=== PATIENT | male | born 1975 | race African-American/Black ===

== ENCOUNTER 2016-11-16 15:56 | Emergency (ER) | payer OTHER ==
[2016-11-16 16:02] VITALS: BMI 26.7
[2016-11-16 16:52] LABS: URINE APPEARANCE CLEAR; URINE BILIRUBIN NEGATIVE (NEGATIVE); URINE BLOOD NEGATIVE (NEGATIVE); URINE COLOR STRAW; URINE GLUCOSE (UA) NEGATIVE (NEGATIVE); URINE KETONE NEGATIVE (NEGATIVE); URINE NITRITE NEGATIVE (NEGATIVE); URINE PROTEIN NEGATIVE (NEGATIVE); URINE UROBILINOGEN NEGATIVE E.U./dl (0.2-1.0)
[2016-11-16] MEDS ORDERED: ACETAMINOPHEN 325 MG TABLET (FP) PO ONE (16:52)
[2016-11-16 16:53] LABS: URINE LEUK ESTERASE TRACE (NEGATIVE)
[2016-11-16] MEDS ORDERED: ACETAMINOPHEN 325 MG TABLET (FP) ONE (16:54)
[2016-11-16 16:56] LABS: BASOPHIL 0.4 % (0-2.0); EOSINOPHIL 0.3 % (0-4.5); MCH 28.3 pg (25.7-33.7); MCHC 32.8 g/dl (32.0-35.9); MEAN CELL VOLUME 86.4 fl (80-96); NEUTROPHILS 89.1 % (42.8-82.8); PLATELET COUNT 244 K/MM3 (134-434); RDW 13.6 % (11.9-15.9); WHITE BLOOD COUNT 11.3 K/mm3 (4.0-10.0)
[2016-11-16 17:20] LABS: URINE RBC 0-2 /hpf (0-3)
[2016-11-16] MEDS ORDERED: LEVOFLOXACIN 500 MG TABLET (FP) PO ONE (17:57)
--- NOTE | 2016-11-16 18:10 | PDOC ---
History of Present Illness <Na Fritz - Last Filed: 11/16/16 18:11> - History of Present Illness Initial Comments: 11/16/16 18:35 Patient is a 41 year old male with no significant medical hx who is presenting to the ED with fever, chills and body aches since today. He also complains of headache and some burning with urination. Denies nausea, vomiting, diarrhea, chest pain, cough, abdominal pain, and shortness of breath. Denies past medical hx, chronic medications, and any known allergies. Patient is a [employer] employee who works in the [employer]. <Jennifer Lal - Last Filed: 11/16/16 18:43> - General Chief Complaint: Headache Stated Complaint: FEVER, CHILLS, COLD Time Seen by Provider: 11/16/16 17:29 Past History - Past Medical History Other medical history: PT DENIES MEDICAL HX - Psycho/Social/Smoking Cessation Hx Anxiety: No Suicidal Ideation: No Smoking History: Never smoked Hx Alcohol Use: No Drug/Substance Use Hx: No <Na Fritz - Last Filed: 11/16/16 18:11> <Jennifer Lal - Last Filed: 11/16/16 18:43> - Past Medical History Allergies/Adverse Reactions: Allergies Allergy/AdvReac Type Severity Reaction Status Date / Time No Known Allergies Allergy Verified 11/16/16 16:03 Home Medications: Ambulatory Orders Sulfamethoxazole/Trimethoprim [Bactrim Ds -] 1 tab PO BID #14 tablet 11/16/16 Review of Systems - Review of Systems Comments:: 11/16/16 18:39 CONSTITUTIONAL: Present: fever, chills Absent: diaphoresis, generalized weakness, malaise, loss of appetite HEENT: Absent: rhinorrhea, nasal congestion, throat pain, throat swelling, difficulty swallowing, mouth swelling, ear pain, eye pain, visual changes CARDIOVASCULAR: Absent: chest pain, syncope, palpitations, irregular heart rate, lightheadedness , peripheral edema RESPIRATORY: Absent: cough, shortness of breath, dyspnea with exertion, orthopnea, wheezing, stridor, hemoptysis GASTROINTESTINAL: Absent: abdominal pain, abdominal distension, nausea, vomiting, diarrhea, constipation, melena, hematochezia GENITOURINARY: Present: dysuria Absent: frequency, urgency, hesitancy, hematuria, flank pain, genital pain MUSCULOSKELETAL: Present: myalgia Absent: arthralgia, joint swelling SKIN: Absent: rash, itching, pallor HEMATOLOGIC/IMMUNOLOGIC: Absent: easy bleeding, easy bruising, lymphadenopathy, frequent infections ENDOCRINE: Absent: unexplained weight gain, unexplained weight loss, heat intolerance, cold intolerance NEUROLOGIC: Present: headache Absent: focal weakness or paresthesia, dizziness, unsteady gait, seizure, mental status changes, bladder or bowel incontinence. PSYCHIATRIC: Absent: anxiety, depression, suicidal or homicidal ideation, hallucinations <HaliJennifer chan - Last Filed: 11/16/16 18:43> *Physical Exam - Vital Signs Last Vital Signs Temp Pulse Resp BP Pulse Ox 103 F H 94 H 20 146/91 100 11/16/16 16:56 11/16/16 16:00 11/16/16 16:00 11/16/16 16:00 11/16/16 16:00 <Na Fritz - Last Filed: 11/16/16 18:11> - Vital Signs Last Vital Signs Temp Pulse Resp BP Pulse Ox 99.2 F 81 18 130/75 99 11/16/16 18:29 11/16/16 18:29 11/16/16 18:29 11/16/16 18:29 11/16/16 18:29 - Physical Exam Comments: 11/16/16 18:41 GENERAL: Well developed, well nourished. Awake and alert. No acute distress. HEENT: Normocephalic, atraumatic. PERRLA, EOMI. No conjunctival pallor. Sclera are non- icteric. Moist mucous membranes. Oropharynx is clear. NECK: Supple. Full ROM. No JVD. Carotid pulses 2+ and symmetric, without bruits. No thyromegaly. No lymphadenopathy. CARDIOVASCULAR: Tachycardic. No murmurs, rubs, or gallops. Distal pulses are 2+ and symmetric. PULMONARY: No evidence of respiratory distress. Lungs clear to auscultation bilaterally. No wheezing, rales or rhonchi. ABDOMINAL: Soft. Non-tender. Non-distended. No rebound or guarding. No organomegaly. Normoactive bowel sounds. MUSCULOSKELETAL: Normal range of motion at all joints. No bony deformities or tenderness. No CVA tenderness. EXTREMITIES: No cyanosis. No clubbing. No edema. No calf tenderness. SKIN: Warm and dry. Normal capillary refill. No rashes. No jaundice. NEUROLOGICAL: Alert, awake, appropriate. Cranial nerves 2-12 intact. Normal speech. PSYCHIATRIC: Cooperative. Good eye contact. Appropriate mood and affect. <HaliJennifer - Last Filed: 11/16/16 18:43> ED Treatment Course - LABORATORY CBC & Chemistry Diagram: 11/16/16 16:49 - ADDITIONAL ORDERS Additional order review: Laboratory Results 11/16/16 16:30 Urine Color Straw Urine Appearance Clear Urine pH 7.0 Ur Specific [place] 1.015 Urine Protein Negative Urine Glucose (UA) Negative Urine Ketones Negative Urine Blood Negative Urine Nitrite Negative Urine Bilirubin Negative Urine Urobilinogen Negative Ur Leukocyte Esterase Trace H Urine RBC 0-2 Urine WBC 10-15 Ur Epithelial Cells Rare 11/16/16 16:49 Influenza Types A,B Antigen ([facility]AR[facility]Y) - Final Nasopharyngeal Swab - Final 11/16/16 16:49 RBC 4.65 MCV 86.4 MCHC 32.8 RDW 13.6 MPV 8.0 Neutrophils % 89.1 H Lymphocytes % 9.1 Monocytes % 1.1 L Eosinophils % 0.3 Basophils % 0.4 - Medications Given in the ED: ED Medications Discontinued Medications Generic Name Dose Route Start Last Admin Trade Name Manjit PRN Reason Stop Dose Admin Acetaminophen 975 mg 11/16/16 16:52 11/16/16 16:52 Tylenol - PO 11/16/16 16:53 975 mg NOW ONE Administration <Na Fritz - Last Filed: 11/16/16 18:11> - LABORATORY CBC & Chemistry Diagram: 11/16/16 16:49 - ADDITIONAL ORDERS Additional order review: Laboratory Results 11/16/16 16:30 Urine Color Straw Urine Appearance Clear Urine pH 7.0 Ur Specific [place] 1.015 Urine Protein Negative Urine Glucose (UA) Negative Urine Ketones Negative Urine Blood Negative Urine Nitrite Negative Urine Bilirubin Negative Urine Urobilinogen Negative Ur Leukocyte Esterase Trace H Urine RBC 0-2 Urine WBC 10-15 Ur Epithelial Cells Rare 11/16/16 16:49 Influenza Types A,B Antigen (HARVEY) - Final Nasopharyngeal Swab - Final 11/16/16 16:49 RBC 4.65 MCV 86.4 MCHC 32.8 RDW 13.6 MPV 8.0 Neutrophils % 89.1 H Lymphocytes % 9.1 Monocytes % 1.1 L Eosinophils % 0.3 Basophils % 0.4 - Medications Given in the ED: ED Medications Discontinued Medications Generic Name Dose Route Start Last Admin Trade Name Manjit PRN Reason Stop Dose Admin Acetaminophen 975 mg 11/16/16 16:52 11/16/16 16:52 Tylenol - PO 11/16/16 16:53 975 mg NOW ONE Administration <Jennifer Lal - Last Filed: 11/16/16 18:43> *DC/Admit/Observation/Transfer <Na Fritz - Last Filed: 11/16/16 18:11> - Attestations Scribe Attestion: 11/16/16 18:43 Documentation prepared by Jennifer Lal, acting as medical coding manager for Na Fritz MD. <Jennifer Lal - Last Filed: 11/16/16 18:43> Diagnosis at time of Disposition: Body aches Fever Qualifiers: Fever type: other Qualified Code(s): R50.81 - Fever presenting with conditions classified elsewhere UTI (urinary tract infection) Qualifiers: Urinary tract infection type: site unspecified Hematuria presence: without hematuria Qualified Code(s): N39.0 - Urinary tract infection, site not specified - Discharge Dispostion Disposition: HOME Condition at time of disposition: Stable - Prescriptions Prescriptions: Sulfamethoxazole/Trimethoprim [Bactrim Ds -] 1 tab PO BID #14 tablet - Patient Instructions Printed Discharge Instructions: DI for Fever (Symptom) -- Adult, DI for Urinary Tract Infection (UTI) Additional Instructions: please take tylenol or motrin for fever and bodyaches drink plenty of water rest return to the emergency department if your symptoms worsen - Post Discharge Activity Work/School Note: Back to Work
[2016-11-16] MEDS ORDERED: LEVOFLOXACIN 500 MG TABLET (FP) ONE (18:23)
[2016-11-16 18:30] VITALS: BP 130/75; PULSE 81; TEMP 99.2
== END 2016-11-16 18:31 | disposition home or self-care (01) ==
LOC: JER 15:56
DX: N39.0 Urinary tract infection, site not specified (principal)
CPT/HCPCS: 36415; 81003; 81015; 85025; 87086; 87804; 99283-25